=== PATIENT | male | born 1970 | race Caucasian/White ===

== ENCOUNTER 2018-08-21 09:42 | Emergency (ER) | payer MEDICAID ==
--- NOTE | 2018-08-21 10:09 | EDPHY ---
H & P Stated Complaint: pt had coughing fit 2 days ago causing fall/r rib/abd/back/ leg pain Time Seen by Provider: 08/21/18 09:51 HPI/ROS: HPI: This is a 48-year-old male who presents with Chief Complaint: pt had coughing fit 2 days ago causing fall/r rib/abd/back/leg pain Location: Right anterior lower rib, chest, lower back Quality: Pain Duration: Unknown Signs and Symptoms: no shortness of breath at rest, no shortness of breath on exertion, + nonproductive cough, no chest pain, no palpitations, no lower extremity edema, no wheezing, no orthopnea, no paroxysmal nocturnal dyspnea, no fever, no injury/trauma, no hemoptysis, no carpal pedal spasms Timing: Acute on chronic Severity: 10/11 Context: Patient is a heavy tobacco user, does not have any inhalers, denies history of lung disease, presents with having a "coughing fit" 2 days ago and then developed right-sided lower rib pain, lower back pain. He reports that this pain worsens with inspiration and coughing episodes. He is at the [employer] volunteering today when he had another coughing fit and then had post-tussive emesis. Patient reports moderate, constant, nonradiating pain. He further mentions chronic low back pain, chronic right arm pain and not having pain medications for the last 1 year. Denies alcohol or drug use. No primary care provider. Denies change in bowel or bladder habits. No fever, shortness of breath, wheezing. No recent long distance travel. Modifying Factors: Took Tylenol and ibuprofen without relief of pain Comment: ROS: A comprehensive 10 system review of systems is otherwise negative aside from elements mentioned in the history of present illness. MEDICAL/SURGICAL/SOCIAL HISTORY: Medical history: Chronic low back pain, sciatica, chronic pain patient Surgical history: Denies Social history: Heavy tobacco user. Unemployed. Recently moved to the area. CONSTITUTIONAL: Untidy, difficult historian, middle-aged male, awake and alert, no obvious distress HEENT: Atraumatic and normocephalic, PERRL, EOMI. Nares patent; no rhinorrhea; no nasal mucosal edema. Tympanic membranes clear. Oropharynx clear, no exudate and moist pink mucosa. Airway patent. No lymphadenopathy. No meningismus. Cardiovascular: Normal S1/S2, regular rate, regular rhythm, without murmur rub or gallop. PULMONARY/CHEST: Symmetrical and reproducible right anterior lower rib tenderness with no ecchymosis or deformity appreciated. Clear to auscultation bilaterally. Good air movement. No accessory muscle usage. ABDOMEN: Soft, nondistended, nontender, no rebound, no guarding, no peritoneal signs, no masses or organomegaly. No CVAT. EXTREMITIES: 2/2 pulses, strength 5/5, no deformities, no clubbing, no cyanosis or edema. NEUROLOGICAL: no focal neuro deficits. GCS 15. SKIN: Warm and dry, no erythema. no rash. Good capillary refill. Source: Patient Exam Limitations: No limitations - Personal History Current Tetanus Diphtheria and Acellular Pertussis (TDAP): Yes - Medical/Surgical History Hx Asthma: No Hx Chronic Respiratory Disease: No Hx Diabetes: No Hx Cardiac Disease: No Hx Renal Disease: No Hx Cirrhosis: No Hx Alcoholism: No Hx HIV/AIDS: No Hx Splenectomy or Spleen Trauma: No Other PMH: Sciatica, back pain CHRONIC PAIN patient - Social History Smoking Status: Heavy smoker Constitutional: Initial Vital Signs Temperature (C) 36.4 C 08/21/18 09:47 Heart Rate 70 08/21/18 09:47 Respiratory Rate 18 08/21/18 09:47 Blood Pressure 137/82 H 08/21/18 09:47 O2 Sat (%) 99 08/21/18 09:47 O2 Delivery Mode Room Air Allergies/Adverse Reactions: morphine Allergy (Verified 08/21/18 09:45) tramadol Allergy (Verified 08/21/18 09:45) Home Medications: Medication Instructions Recorded Albuterol Sulfate [Proair Hfa] 1 - 2 puffs IH Q4 PRN #1 hfa.aer.ad 08/21/18 levOFLOXACIN [levAQUIN (*)] 750 mg PO DAILY #4 tab 08/21/18 Medical Decision Making - Diagnostics Imaging Results: Imaging Impressions Chest X-Ray 08/21/18 10:22 Impression: Left basilar pneumonia versus atelectasis. Lumbar Spine X-Ray 08/21/18 10:22 Impression: Mild early degenerative disk and degenerative joint disease in the lumbar spine. No evidence for compression fracture. ED Course/Re-evaluation: Vital signs reviewed and stable upon arrival. No hypoxia or respiratory distress. Chest x-ray, lumbosacral x-ray, medications ordered Given DuoNeb, Flexeril, gabapentin, Lidoderm patch No neurological deficits to warrant emergent MRI Wells criteria low for pulmonary embolism 1100: Notified by RN that patient states that he is allergic to gabapentin along with morphine and tramadol Case management consult. Patient has primary care provider and has an appointment set up for next week. 1120: Lumbosacral x-ray my read shows no fracture, significant degenerative changes. Chest x-ray my read shows reactive airway disease increased bronchial markings bilaterally. No tree opacity, no effusion, no widened mediastinum, no pneumothorax, no fracture. 1130: Chest x-ray per radiology read questions: Left basilar pneumonia versus atelectasis. CURB 65=0; low risk and appropriate to treat outpatient Will treat for unhealthy community-acquired pneumonia with Levaquin 750 mg daily x 5 days along with albuterol inhaler. Advised the patient that the emergency room does not prescribe chronic pain medications and he will need to follow up with his primary care provider. No signs of neurovascular compromise/tenting of skin/compartment syndrome/ extremities and joints examined above and below area of concern and are neurovascularly intact/cauda equina syndrome/saddle anesthesia This patient was seen under the supervision of my secondary supervising physician. I evaluated and cared for this patient with attending. 1200: Patient became very upset and angry at discharge as he did not receive pain medications. Differential Diagnosis: Differential diagnosis includes but is not limited to acute coronary syndrome, costochondritis, bronchitis, pneumonia, rib fracture. - Data Points Medications Given: Discontinued Medications Albuterol/Ipratropium (Duoneb) 3 ml IH EDNOW ONE Stop: 08/21/18 10:23 Last Admin: 08/21/18 10:55 Dose: 3 ml Gabapentin (Neurontin) 600 mg PO EDNOW ONE Stop: 08/21/18 10:23 Last Admin: 08/21/18 11:02 Dose: Not Given Miscellaneous Medication (Icy Hot Lidocaine/Menthol 4%/1% Patch) 1 patch TD EDNOW ONE Stop: 08/21/18 10:23 Last Admin: 08/21/18 10:54 Dose: 1 patch Departure - Departure Disposition: Home, Routine, Self-Care Clinical Impression: Tobacco user Community acquired pneumonia Qualifiers: Laterality: left Lung location: lower lobe of lung Qualified Code(s): J18.1 - Lobar pneumonia, unspecified organism Chronic lower back pain Qualifiers: Back pain laterality: bilateral Sciatica presence: without sciatica Qualified Code(s): M54.5 - Low back pain Condition: Good Instructions: How to Stop Smoking (ED), Costochondritis (ED) Additional Instructions: Please take all antibiotics as directed. Do not skip a dose. Use albuterol inhaler every 4 hr as needed for shortness of breath or wheezing. Take Tylenol 650 mg every 4 hours and/or Ibuprofen 600 mg every 8 hours with food as needed for pain. Follow-up with primary care provider next week to discuss chronic pain management. Please consider tobacco cessation. Referrals: [facility],. [Clinic] - As per Instructions Cheyanne Young MD [Primary Care Provider] - As per Instructions Prescriptions: Albuterol Sulfate [Proair Hfa] 1 - 2 puffs IH Q4 PRN #1 hfa.aer.ad PRN Reason: Short Of Breath/Dyspnea levOFLOXACIN [levAQUIN (*)] 750 mg PO DAILY #4 tab
[2018-08-21] MEDS ORDERED: GABAPENTIN 300 MG CAP PO ONE (10:22)
[2018-08-21] MEDS ORDERED: LIDOCAINE 4%/MENTHOL 1% PATCH TD ONE (10:22)
[2018-08-21] MEDS ORDERED: IPRATROPIUM/ALBUTEROL 3 ML DEYVIAL IH ONE (10:22)
[2018-08-21 11:00] VITALS: BP 105/61
--- NOTE | 2018-08-21 18:34 | ASMTCMCOM ---
CM Note CM Note Notes: Requested to speak to pt re:PCP followup. Spoke w/pt and he states he lives in [place] and has been trying to get back in w/his PCP Dr Cheyanne Young at [facility] ([phone]) but has had difficulty due to his work schedule. Pt states he is off work on Tuesdays and Wednesdays. CM called [facility] PCP scheduling backline #([phone]) and was able to get pt an appt next 08/30 at 8:45am. Pt states this day and time will work for him. Pt reportedly was seen by Dr Young back in June and had appts in July and on 08/08 but either canceled or no-showed. Pt aware that he needs to call [facility] if he needs to cancel or reschedule. Per ED Provider and past ED notes (01/08/2010) pt is a chronic back pain mgmt patient. Per ED RN, pt became verbally abusive after being told that he would not be receiving narcotic pain medication in the ED. See ED RN note. CM available for further assistance if needed. Date Signed: 08/21/2018 05:21 PM Electronically Signed By:Kylee Schaefer RN
[2018-08-21] MEDS ORDERED: PATCH REMOVAL 1 EA PATCH TD SCH (21:00)
== END 2018-08-21 11:50 | disposition home or self-care (01) ==
DX: J18.1 Lobar pneumonia, unspecified organism (principal); M54.5 Low back pain; F17.200 Nicotine dependence, unspecified, uncomplicated